=== PATIENT | male | born 1990 | race Caucasian/White ===

== ENCOUNTER 2020-12-30 17:14 | Emergency (ER) | payer SELFPAY ==
[~2020-12-30] VITALS: Ht 177.8 cm; Wt 75.0 kg
[2020-12-30 17:31] VITALS: BP 136/77
--- NOTE | 2020-12-30 17:46 | PHYS DOC ---
Past History Past Medical History: No Pertinent History (EASTON SAMSON MD) Past Surgical History: Other Additional Past Surgical Histo: GI (EASTON SAMSON MD) Alcohol Use: Occasionally (EASTON SAMSON MD) General Adult EDM: Chief Complaint: UPPER EXTREMITY PAIN HPI: HPI: Patient is a 30-year-old male coming for right upper extremity, right neck pain. Patient states his had jumped out and he fell down some stairs last night. Fell down a flight of carpeted stairs. Denies any loss of consciousness and ambulatory afterwards. Took ibuprofen this morning without improvement. Also had a similar incident 3 nights ago where he felt ulcers but had a loss of consciousness after the same events ( playfully jumped on him) and was seen at and was scanned. Patient denies any other new injuries. Is right-handed. Denies any bleeding. (EASTON SAMSON MD) Review of Systems: Review of Systems: All other systems within normal limits except for as noted in the HPI (EASTON SAMSON MD) Allergies: Allergies: Allergies Coded Allergies Type Severity Reaction Last Updated Verified No Known Drug Allergies 12/30/20 No (EASTON SAMSON MD) Physical Exam: PE: Constitutional: Well developed, well nourished, no acute distress, non-toxic appearance. [] HENT: Normocephalic, atraumatic, bilateral external ears normal, nose normal. [] Eyes: PERRLA, conjunctiva normal, no discharge. [] Neck: Tenderness over right neck and C-spine. No step-offs or deformity [] Cardiovascular: Regular rate and rhythm, brisk cap refill [] Lungs & Thorax: Non labored symmetric respirations, no tachypnea or respiratory distress [] Abdomen: Soft, nondistended. Skin: Warm, dry, no erythema, no rash. [] Back: Unremarkable Extremities: No deformities, range of motion grossly intact, no lower extremity edema right upper extremity: Tenderness over humeral head and shoulder, swelling and tenderness at elbow, wrist unremarkable, swelling on dorsum of right hand, AIN, PIN, radial, ulnar and median nerves intact distally to injury. [] Neurologic: Alert and oriented X 3, no focal deficits noted. [] Psychologic: Affect normal, judgement normal, mood normal. [] (EASTON SAMSON MD) Current Patient Data: Vital Signs: Vital Signs Date Time Temp Pulse Resp B/P (MAP) Pulse Ox O2 Delivery O2 Flow Rate FiO2 12/30/20 17:31 98.7 113 16 136/77 (96) 99 Room Air (EASTON SAMSON MD) EKG: EKG: [] (EASTON SAMSON MD) Radiology/Procedures: Radiology/Procedures: [] (EASTON SAMSON MD) Radiology/Procedures: [address] [address] IMAGING REPORT Signed PATIENT: KEVIN IVAN AACCOUNT: [id number] : 1990 LOCATION: ER AGE: 30 SEX: M EXAM STATUS: REG ER ORD. PHYSICIAN: EASTON SAMSON MD REASON: fall PROCEDURE: HUMERUS RIGHT EXAM: XR HAND_RIGHT 2 VIEWS, XR HUMERUS_RT 2 VIEWS, XR ELBOW COMPLETE_RIGHT 3+ VIEWS, XR FOREARM_RIGHT 2 VIEWS 12/30/2020 5:48 PM CLINICAL INDICATION: Fall COMPARISON: None FINDINGS: Right humerus: 2 views of the right humerus. No acute fracture or malalignment. No soft tissue abnormality. Right elbow: 3 views of the right elbow. No acute fracture or malalignment. Joint spaces are maintained. There is no joint effusion. Mild soft tissue swelling along the olecranon. Right forearm: 2 views of the right forearm. No acute fracture or malalignment. No focal soft tissue abnormality. Right hand: 2 views of the right hand. No acute fracture. Alignment is normal. Joint spaces are maintained. Mild dorsal soft tissue swelling along the metacarpal heads. IMPRESSION: No acute osseous abnormality of the right humerus, elbow, forearm, or hand. Electronically signed by: Easton Hernandez MD (12/30/2020 6:33 PM) [id number] DICTATED AND SIGNED BY: EASTON HERNANDEZ MD DATE: 12/30/201828 CC: EASTON SAMSON MD; PCP,NO ~MTH0 [address] [address] IMAGING REPORT Signed PATIENT: KEVIN IVAN AACCOUNT: [id number] : 1990 LOCATION: ER AGE: 30 SEX: M EXAM STATUS: REG ER ORD. PHYSICIAN: EASTON SAMSON MD REASON: fall PROCEDURE: HAND RIGHT 2V EXAM: XR HAND_RIGHT 2 VIEWS, XR HUMERUS_RT 2 VIEWS, XR ELBOW COMPLETE_RIGHT 3+ VIEWS, XR FOREARM_RIGHT 2 VIEWS 12/30/2020 5:48 PM CLINICAL INDICATION: Fall COMPARISON: None FINDINGS: Right humerus: 2 views of the right humerus. No acute fracture or malalignment. No soft tissue abnormality. Right elbow: 3 views of the right elbow. No acute fracture or malalignment. Joint spaces are maintained. There is no joint effusion. Mild soft tissue swelling along the olecranon. Right forearm: 2 views of the right forearm. No acute fracture or malalignment. No focal soft tissue abnormality. Right hand: 2 views of the right hand. No acute fracture. Alignment is normal. Joint spaces are maintained. Mild dorsal soft tissue swelling along the metacarp al heads. IMPRESSION: No acute osseous abnormality of the right humerus, elbow, forearm, or hand. Electronically signed by: Easton Hernandez MD (12/30/2020 6:33 PM) [id number] DICTATED AND SIGNED BY: EASTON HERNANDEZ MD DATE: 12/30/201828 CC: EASTON SAMSON MD; PCP,NO ~MTH0 0 (URI VALDIVIA MD) Heart Score: Risk Factors: Risk Factors: DM, Current or recent (<one month) smoker, HTN, HLP, family history of CAD, obesity. Risk Scores: Score 0 - 3: 2.5% MACE over next 6 weeks - Discharge Home Score 4 - 6: 20.3% MACE over next 6 weeks - Admit for Clinical Observation Score 7 - 10: 72.7% MACE over next 6 weeks - Early Invasive Strategies (EASTON SAMSON MD) Course & Med Decision Making: Course & Med Decision Making Imaging ordered, care transitioned at shift change pending radiology. [] (EASTON SAMSON MD) Course & Med Decision Making See Dr. Samson chart for details. No obvious fractures noted on x-rays per radiology. Ice packs as needed. Tylenol and ibuprofen for pain. For marked pain spasms may take Flexeril and Vicoprofen. Cosmo-ray in 2 weeks if no improvement. Follow-up primary care. Impression: 1. Fall 2. Contusions , Sprain and Strain (URI VALDIVIA MD) Christian Disclaimer: Christian Disclaimer: This electronic medical record was generated, in whole or in part, using a voice recognition dictation system. (EASTON SAMSON MD) Departure Departure: Referrals: PCP,NO (PCP) Scripts Hydrocodone/Ibuprofen (HYDROCODONE-IBUPROFEN 7.5-200 ) 1 Each Tablet 1 TAB PO PRN Q6HRS PRN for PAIN, #60 TAB 0 Refills Prov: URI VALDIVIA MD 12/30/20 Cyclobenzaprine Hcl (CYCLOBENZAPRINE HCL) 10 Mg Tablet 10 MG PO tidprn for spasms, #30 TAB Prov: URI VALDIVIA MD 12/30/20 EASTON SAMSON MD Dec 30, 2020 17:45 URI VALDIVIA MD Dec 30, 2020 18:40
[2020-12-30] MEDS ORDERED: HYDROcodone/APAP 5/325MG 1 TAB TABLET PO ONE (18:00)
--- NOTE | 2020-12-30 18:35 | RAD ---
EXAM: XR HAND_RIGHT 2 VIEWS, XR HUMERUS_RT 2 VIEWS, XR ELBOW COMPLETE_RIGHT 3+ VIEWS, XR FOREARM_RIG HT 2 VIEWS 12/30/2020 5:48 PM CLINICAL INDICATION: Fall COMPARISON: None FINDINGS: Right humerus: 2 views of the right humerus. No acute fracture or malalignment. No soft tissue abnorm ality. Right elbow: 3 views of the right elbow. No acute fracture or malalignment. Joint spaces are maintain ed. There is no joint effusion. Mild soft tissue swelling along the olecranon. Right forearm: 2 views of the right forearm. No acute fracture or malalignment. No focal soft tissue abnormality. Right hand: 2 views of the right hand. No acute fracture. Alignment is normal. Joint spaces are maint ained. Mild dorsal soft tissue swelling along the metacarpal heads. IMPRESSION: No acute osseous abnormality of the right humerus, elbow, forearm, or hand. Electronically signed by: Clare Hernandez MD (12/30/2020 6:33 PM) [id number]
[2020-12-30] MEDS ORDERED: CYCL-331 PO (18:46)
[2020-12-30] MEDS ORDERED: HYDR-1179 PO (18:46)
== END 2020-12-30 19:05 | disposition home or self-care (01) ==
LOC: ER 17:14
DX: S13.9XXA Sprain of joints and ligaments of unspecified parts of neck, initial encounter (principal); R22.31 Localized swelling, mass and lump, right upper limb; W10.8XXA Fall (on) (from) other stairs and steps, initial encounter; Y93.89 Activity, other specified; Y92.89 Other specified places as the place of occurrence of the external cause; Y99.8 Other external cause status
CPT/HCPCS: 73060; 73080; 73090; 73120; 99284

== ENCOUNTER 2021-12-07 19:54 | Emergency (ER) | payer OTHER ==
[~2021-12-07] VITALS: Ht 177.8 cm; Wt 92.0 kg
[~2021-12-07 19:54] MED LIST: CYCL10TA19 PO; HYDR-1179 PO
[2021-12-07] MEDS ORDERED: HYDROcodone/APAP 5/325MG 1 TAB TABLET PO ONE (20:30)
[2021-12-07] MEDS ORDERED: DIPHTH,PERTUSS(ACELL),TET TOX 0.5 ML DISP.SYRIN. VAX IM ONE (20:30)
--- NOTE | 2021-12-07 20:42 | PHYS DOC ---
Past History Past Medical History: No Pertinent History (JOSIAH ORTEGA APRN) Past Surgical History: Other Additional Past Surgical Histo: GI (JOSIAH ORTEGA APRN) Alcohol Use: Occasionally (JOSIAH ORTEGA APRN) Adult General Chief Complaint Chief Complaint: MECHANICAL FALL HPI HPI Patient is a 31-year-old male who presents to the emergency department with chief complaint of slipping and falling on the ice falling forward and hitting his face on the concrete, patient reports he tried to catch himself with his right hand extended and feels he injured his right hand. Patient denies loss of consciousness, denies visual disturbances, denies dizziness, syncopal or near syncopal episode, patient does report nose pain forehead pain neck pain and right hand pain. Patient reports his last tetanus immunization was greater than 5 years ago. Denies taking pain medication or trying nonpharmacological pain relief methods prior to coming to the ER today, patient reports incident happened this prior to arrival to the emergency department. (JOSIAH ORTEGA APRN) Review of Systems Review of Systems Constitutional: Denies fever or chills [] Eyes: Denies change in visual acuity, redness, or eye pain [] HENT: Denies nasal congestion or sore throat [] Respiratory: Denies cough or shortness of breath [] Cardiovascular: No additional information not addressed in HPI [] GI: Denies abdominal pain, nausea, vomiting, bloody stools or diarrhea [] : Denies dysuria or hematuria [] Musculoskeletal: Denies back pain or joint pain [] Integument: Denies rash or skin lesions [] Neurologic: Denies headache, focal weakness or sensory changes [] Endocrine: Denies polyuria or polydipsia [] All other systems were reviewed and found to be within normal limits, except as documented in this note. (JOSIAH ORTEGA APRN) Current Medications Current Medications Current Medications Medications (Trade) Dose Ordered Sig/Chelita Start Time Stop Time Status Last Admin Dose Admin Diphtheria/ Tetanus/Acell Pertussis (Boostrix) 0.5 ml ONCE ONCE 12/07/21 20:30 12/07/21 20:31 UNV (JOSIAH ORTEGA APRN) Allergies Allergies Allergies Coded Allergies Type Severity Reaction Last Updated Verified No Known Drug Allergies 12/30/20 No (JOSIAH ORTEGA APRN) Physical Exam Physical Exam Constitutional: Well developed, well nourished, no acute distress, non-toxic appearance. 31-year-old male in no apparent distress. HENT: Normocephalic, nasal contusion, forehead contusion with abrasion, no cintron sign, no raccoon eyes, bilateral TMs intact and within normal limits, pain to palpation over bridge of nose and forehead, no pain to palpation over zygoma bony prominences bilaterally, no drooling, no trismus, no lymphadenopathy of the head or neck appreciated, no deep tissue infectious process appreciated, no oral lacerations present. Eyes: Conjunctiva normal, no discharge. Neck: Normal range of motion, no stridor. Pain to palpation along central C- spine, no step-offs, no deformities. Hard c-collar placed. Cardiovascular: No cyanosis appreciated, distal cap refill less than 2 seconds. Lungs & Thorax: Patient is in no respiratory distress, no audible adventitious lung sounds appreciated. Abdomen: Nontender, no abnormalities noted. Skin: Warm, dry, no erythema, no rash. Abrasion to forehead and bridge of nose. Back: No tenderness, no deformities. Extremities: No tenderness, no cyanosis, no clubbing, ROM intact, no edema. Except for right hand, pain to palpation along dorsum hand surface without deformity, 2+ bilateral radial pulses, distal cap refill less than 2 seconds bilateral upper extremities. Neurologic: Alert and oriented X 3, normal motor function, normal sensory function, no focal deficits noted. Psychologic: Affect normal, judgement normal, mood normal. (JOSIAH ORTEGA APRN) Current Patient Data Vital Signs Vital Signs Date Time Temp Pulse Resp B/P (MAP) Pulse Ox O2 Delivery O2 Flow Rate FiO2 12/07/21 20:00 97.9 103 18 136/93 (107) 99 Room Air (JOSAIH ORTEGA APRN) EKG EKG [] (JOSIAH ORTEGA APRN) Radiology/Procedures Radiology/Procedures REASON: Fall, neck pain PROCEDURE: CT CERVICAL SPINE WO CONTRAST CT CERVICAL SPINE WO, CT HEAD AND MAXILLOFACIAL WO History: Fall, headache and neck pain. Comparison: None. Technique: Noncontrast CT of the head, cervical spine and maxillofacial bones. Findings: CT HEAD: There is no evidence for intracranial mass or hemorrhage. There is no hydrocephalus or midline shift. No abnormal extra-axial fluid collections are present. Diaz/white matter differentiation is preserved. The skull and scalp are within normal limits. CT CERVICAL SPINE: There is no evidence for fracture in the cervical spine. Alignment is normal. Disc spaces are preserved. No destructive osseous lesions are seen. Limited evaluation of the soft tissues of the neck and of the upper chest is unremarkable. CT MAXILLOFACIAL: Mildly comminuted left nasal bone fracture. The orbital maldonado are intact. The orbits are symmetric. Periorbital soft tissues are normal. Complete opacification of the right maxillary sinus with expansile appearance of the medial maxillary wall, suspicious for mucocele. Right anterior ethmoid opacification. Complete right frontal opacification. Mucoperiosteal thickening in the left frontal left maxillary, left anterior ethmoid, bilateral posterior ethmoid and bilateral sphenoid sinuses. Dental disease with multiple caries and periapical lucencies. Impression: 1. No acute intracranial findings. 2. No acute osseous abnormality in the cervical spine. 3. Minimally displaced and comminuted left nasal bone fracture. 4. Lomax sinus disease with expansile appearance of the right maxillary sinus, likely representing mucocele. ------- Exposure: One or more of the following individualized dose reduction techniques were utilized for this examination: 1. Automated exposure control 2. Adjustment of the mA and/or kV according to patient size 3. Use of iterative reconstruction technique. Electronically signed by: James Harris MD (12/07/2021 9:01 PM) [facility] DICTATED AND SIGNED BY: JAMES HARRIS MD DATE: 12/07/212051 REASON: Fall, right hand pain with abrasions PROCEDURE: HAND RIGHT 3V Exam: XR HAND_RIGHT 3 VIEWS History: Fall, right hand pain. Comparison: 12/30/2020 Findings: Osseous mineralization is normal. No acute fracture or dislocaton. No significant degenerative changes. Dorsal hand soft tissue swelling.. Impression: 1. No acute osseous abnormality of the right hand. Electronically signed by: James Harris MD (12/07/2021 9:31 PM) [facility] DICTATED AND SIGNED BY: JAMES HARRIS MD (JOSIAH ORTEGA APRN) Heart Score C/O Chest Pain: No Risk Factors: Risk Factors: DM, Current or recent (<one month) smoker, HTN, HLP, family history of CAD, obesity. Risk Scores: Risk Factors: DM, Current or recent (<one month) smoker, HTN, HLP, family history of CAD, obesity. (JSOIAH ORTEGA APRN) Course & Med Decision Making Course & Med Decision Making Pertinent Labs and Imaging studies reviewed. (See chart for details) 31-year-old male, vital signs reviewed, presents to the emergency department concerning a slip and fall on the ice just prior to arrival to the emergency department. Physical presentation and examination consistent with patient's explanation of events, will order CT head and facial bones and neck without contrast, x-ray imaging of right hand, bring tetanus immunization up-to-date, give p.o. pain medication. Patient reports p.o. pain medication helped, discussed with patient x-ray imaging of hand negative for acute fracture, CT of head facial bones and neck concerning for left-sided nasal bone fracture, minimally displaced. Upon reexamination of nasal turbinates, there is no hematoma is present, patient able to breathe on both sides of naris, no bleeding present. Abrasions were cleaned and dressed by ED nursing staff. Discussed with patient follow-up with ENT for reevaluation of broken nose and for any further problems. Ice packs to sore areas, RICE therapy was reviewed, patient gave verbal understanding of and is amenable to ED discharge planning. Discussed with the patient all findings and diagnostic testing as well as the need to follow-up with their primary care provider for further evaluation and treatment or return to the ED if any new or worsening symptoms. Strict return precautions were also discussed at length, the patient voiced understanding and agreement with the discharge planning. The patient was nontoxic in appearance, in no apparent distress, and hemodynamically stable at the time of disposition. (JOSIAH ORTEGA APRN) Course & Med Decision Making Did not see or evaluate patient. Did not discuss patient with [facility]. Agree with [facility]'s work-up and disposition per note. (COMFORT SORENSEN MD) Dragon Disclaimer Dragon Disclaimer This electronic medical record was generated, in whole or in part, using a voice recognition dictation system. (JOSIAH ORTEGA APRN) Departure Departure: Impression: Primary Impression: Fall Additional Impressions: Nasal fracture Contusion of right hand Forehead abrasion Need for Tdap vaccination Disposition: HOME / SELF CARE / HOMELESS Condition: GOOD Referrals: PCP,NO (PCP) Additional Instructions: You were seen today in the emergency department for a slip and fall on the ice. The x-ray of your right hand did not show any broken bones, the CT of your head and neck did not show any concerning findings, however you did suffer a nasal fracture, as we discussed if this gives you problems breathing you may follow-up with an ENT specialist, you may consider using the ENT specialty at [facility], the information given below for follow-up, however you may choose any ENT specialist of your choice, please follow-up with primary care soon for ongoing symptoms and pain management, you may consider using the [facility] located [address] [place] [address], [place] [address], [place], [address], their phone number is area code [phone]. Please call soon for an appointment. As we discussed, please use ice packs to your sore areas, RICE therapy, this is a acronym for rest, ice, compression, elevation. You may use [id number] Tylenol and or Motrin for ongoing aches and pains. Thank you for visiting our Emergency Department. It was a pleasure taking care of you today in the emergency department and we appreciate you trusting us with your care. If any additional problems come up don't hesitate to return to visit us. Please follow up with your primary care provider so they can plan additional care if needed and know about the problem that you had. If symptoms worsen come back to the Emergency Department. Any concerning symptoms that start such as chest pain, shortness of air, weakness or numbness on one side of the body, running high fevers or any other concerning symptoms return to the ER. [facility] ENT department [address] [facility], [address] EMERGENCY DEPARTMENT GENERAL DISCHARGE INSTRUCTIONS Thank you for coming to [facility] (ED) today and trusting us with you care. We trust that you had a positivie experience in our Emergency Department. If you wish to speak to the department management, you may call the director at [phone]. YOUR FOLLOW UP INSTRUCTIONS ARE FOLLOWS: 1. Do you have a private Doctor? If you do not have a private doctor, please ask for a resource list of physicians or clinics that may be able to assist you with follow up care. 2. The Emergency Physician has interpreted your x-rays. The X-Ray specialist will also review them. If there is a change in the findings, you will be notified in 48 hours when at all possible. 3. A lab test or culture has been done, your results will be reviewed and you will be notified if you need a change in treatment. ADDITIONAL INSTRUCTIONS AND INFORMATION: 1. Your care today has been supervised by a physician who is specially trained in emergency care. Many problems require more than one evaluation for a complete diagnosis and treatment. We recommend that you schedule your follow up appointment as recommended to ensure complete treatment of you illness or injury. If you are unable to obtain follow up care and continue to have a problem, or if your condition worsens, we recommend that you return to the ED. 2. We are not able to safely determine your condition over the phone nor are we able to give sound medical advice over the phone. For these safety reasons, if you call for medical advice we will ask you to come to the ED for further evaluation. 3. If you have any questions regarding these discharge instructions please call the ED at [phone]. SAFETY INFORMATION: In the interest of safety, wellness, and injury prevention; we encourage you to wear your sealbelt, if you smoke; quite smoking, and we encourage family to use a protective helmet for bicycling and other sporting events that present an increased risk for head injury. IF YOUR SYMPTOMS WORSEN OR NEW SYMPTOMS DEVELOP, OR YOU HAVE CONCERNS ABOUT YOUR CONDITION; OR IF YOUR CONDITION WORSENS WHILE YOU ARE WAITING FOR YOUR FOLLOW UP APPOINTMENT; EITHER CONTACT YOUR PRIMARY CARE DOCTOR, THE PHYSICIAN WHOSE NAME AND NUMBER YOU WERE GIVEN, OR RETURN TO THE ED IMMEDIATELY. Problem Qualifiers Primary Impression: Fall Encounter type: initial encounter Qualified Codes: W19.XXXA - Unspecified fall, initial encounter Additional Impressions: Nasal fracture Encounter type: initial encounter Fracture type: closed Qualified Codes: S02.2XXA - Fracture of nasal bones, initial encounter for closed fracture Contusion of right hand Encounter type: initial encounter Qualified Codes: S60.221A - Contusion of right hand, initial encounter Forehead abrasion Encounter type: initial encounter Qualified Codes: S00.81XA - Abrasion of other part of head, initial encounter JOSIAH ORTEGA APRN Dec 07, 2021 20:41 COMFORT SORENSEN MD Dec 07, 2021 22:19
--- NOTE | 2021-12-07 21:04 | RAD ---
CT CERVICAL SPINE WO, CT HEAD AND MAXILLOFACIAL WO History: Fall, headache and neck pain. Comparison: None. Technique: Noncontrast CT of the head, cervical spine and maxillofacial bones. Findings: CT HEAD: There is no evidence for intracranial mass or hemorrhage. There is no hydrocephalus or midline shift. No abnormal extra-axial fluid collections are present. Diaz/white matter differentiation is preserved. The skull and scalp are within normal limits. CT CERVICAL SPINE: There is no evidence for fracture in the cervical spine. Alignment is normal. Disc spaces are preserved. No destructive osseous lesions are seen. Limited evaluation of the soft tissues of the neck and of the upper chest is unremarkable. CT MAXILLOFACIAL: Mildly comminuted left nasal bone fracture. The orbital maldonado are intact. The orbits are symmetric. Periorbital soft tissues are normal. Complete opacification of the right maxillary sinus with expansile appearance of the medial maxillary wall, suspicious for mucocele. Right anterior ethmoid opacification. Complete right frontal opacific ation. Mucoperiosteal thickening in the left frontal left maxillary, left anterior ethmoid, bilateral posterior ethmoid and bilateral sphenoid sinuses. Dental disease with multiple caries and periapical lucencies. Impression: 1. No acute intracranial findings. 2. No acute osseous abnormality in the cervical spine. 3. Minimally displaced and comminuted left nasal bone fracture. 4. Lomax sinus disease with expansile appearance of the right maxillary sinus, likely representing muc ocele. ------- Exposure: One or more of the following individualized dose reduction techniques were utilized for thi s examination: 1. Automated exposure control 2. Adjustment of the mA and/or kV according to patient size 3. Use of iterative reconstruction technique. Electronically signed by: James Bella MD (12/07/2021 9:01 PM) [facility]
--- NOTE | 2021-12-07 21:33 | RAD ---
Exam: XR HAND_RIGHT 3 VIEWS History: Fall, right hand pain. Comparison: 12/30/2020 Findings: Osseous mineralization is normal. No acute fracture or dislocaton. No significant degenerative change s. Dorsal hand soft tissue swelling.. Impression: 1. No acute osseous abnormality of the right hand. Electronically signed by: James Bella MD (12/07/2021 9:31 PM) [facility]
[2021-12-07 21:43] VITALS: BP 143/93
== END 2021-12-07 21:55 | disposition home or self-care (01) ==
LOC: ER 19:54
DX: S02.2XXA Fracture of nasal bones, initial encounter for closed fracture (principal); S00.83XA Contusion of other part of head, initial encounter; W00.2XXA Other fall from one level to another due to ice and snow, initial encounter; Y93.89 Activity, other specified; Y92.89 Other specified places as the place of occurrence of the external cause; Y99.8 Other external cause status
CPT/HCPCS: 70450; 70486; 72125; 73130; 90471; 90715; 99284